=== PATIENT | male | born 1965 | race Caucasian/White ===

== ENCOUNTER 2024-02-25 09:43 | Emergency (ER) | payer BC ==
[~2024-02-25] VITALS: Ht 185.4 cm; Wt 121.4 kg
[~2024-02-25 09:43] MED LIST: ASPIRIN 32325 MG/TAB PO; HYZAAR 50-12.1 UDTAB PO; MASON NATURAL1200 MG PO; PROTONIX20 MG PO; TOPROL XL 25MG25 MG PO; TRICOR145 MG PO
[2024-02-25 09:46] VITALS: TEMP 98.2
[2024-02-25 10:15] LABS: BASO # 0.1 K/mm3 (0.0-0.2); BASO % 1.1 % (0.0-2.0); EOS # 0.2 K/mm3 (0.0-0.7); EOS % 2.9 % (0.0-4.0); GRAN # 5.7 K/mm3 (1.4-6.5); HEMATOCRIT 48.7 % (42.0-52.0); HEMOGLOBIN 16.5 g/dl (13.5-18.0); LYMPH # 1.4 K/mm3 (1.2-3.4); LYMPH % 17.1 % (20.0-51.0); MEAN CELL VOLUME 94 fl (80.0-100.0); MEAN CORPUSCULAR HEMOGLOBIN 32 pg (27-31); MEAN CORPUSCULAR HGB CONC 34 g/dl (33.0-37.0); MEAN PLATELET VOLUME 9.9 fl (7.4-10.4); MONO # 0.7 K/mm3 (0.1-0.6); MONO % 8.7 % (1.7-9.3); PLATELET COUNT 291 K/mm3 (130-400); RED BLOOD COUNT 5.17 M/mm3 (4.20-5.60); REDCELL DISTRIBUTION WIDTH-CV 12.5 % (11.5-14.5)
[2024-02-25 10:28] LABS: PARTIAL THROMBOPLASTIN TIME 30.8 SECONDS (26.0-37.0)
[2024-02-25 10:42] LABS: ALANINE AMINOTRANSFERASE 43 U/L (0-55); ALBUMIN 4.6 g/dL (3.5-5.0); ALKALINE PHOSPHATASE 69 U/L (40-150); ANION GAP 15 mmol/L (7-16); AST,SGOT 48 U/L (5-34); BILIRUBIN,TOTAL 1.2 mg/dL (0.2-1.2); BLOOD UREA NITROGEN 19 mg/dL (8-26); CHLORIDE 100 mEq/L (98-107); CREATININE, serum 1.44 mg/dL (0.72-1.25); GLUCOSE 131 mg/dL (70-99); POTASSIUM 4.2 mEq/L (3.5-4.5); SODIUM 137 mEq/L (136-145); TOTAL PROTEIN 8.3 g/dl (6.2-8.1)
[2024-02-25 11:12] LABS: TROPONIN-I < 0.010 ng/mL (0.00-0.033)
[2024-02-25] MEDS ORDERED: Iohexol 300 - 100 ML VIAL IV ONE (11:19)
[2024-02-25] MEDS ORDERED: NS 100 ML IV ONE (11:20)
[2024-02-25] MEDS ORDERED: hydrALAZINE 20 MG/ML 1 ML VIAL IV ONE (11:30)
[2024-02-25] MEDS ORDERED: amLODIPine 5 MG TAB PO ONE (11:45)
[2024-02-25] MEDS ORDERED: Metoprolol Tartrate 5 MG/5 ML VIAL IV ONE (12:15)
[2024-02-25] MEDS ORDERED: NORVASC 5MG5 MG/TAB PO (12:39)
[2024-02-25 12:57] VITALS: BP 120/100; PULSE 91
== END 2024-02-25 12:57 | disposition home or self-care (01) ==
LOC: COL.ER 09:43
PROVIDERS: Family Medicine
DX: I10 Essential (primary) hypertension (principal); Z79.899 Other long term (current) drug therapy
CPT/HCPCS: J0360; Q9967